=== PATIENT | male | born 1955 | race Caucasian/White ===

== ENCOUNTER → 2024-03-08 13:25 | Outpatient (REF) | payer MEDICARE, OTHER, SELFPAY | LOC: MRI 3T 13:25 | PROVIDERS: ATTENDING PHYSICIAN Physician Assistant Medical; FAMILY PHYSICIAN Family Medicine | DX: M25.511 Pain in right shoulder (principal) | CPT/HCPCS: 73221 ==

== ENCOUNTER 2024-03-29 17:02 | Emergency (ER) | payer MEDICARE, OTHER, SELFPAY ==
[2024-03-29 17:04] VITALS: BP 180/95
[2024-03-29 18:01] VITALS: BMI 34.5
[2024-03-29 18:06] VITALS: BP 174/96
--- NOTE | 2024-03-29 18:57 | ED.GENMED ---
History of Present Illness
General
Chief Complaint: Abdominal Pain
Time Seen by Provider: 03/29/24 17:37
Travel History
Have you had any contact with someone who has COVID-19?: No
Do you have any symptoms of coronavirus? Fever > 100 degrees, chills, cough, shortness of breath, sore throat, loss of taste or smell, muscle aches, or headache?: No
History of Present Illness
History of Present Illness:
69-year-old male with history of hypothyroidism and obstructive sleep apnea presents to the emergency department for evaluation of generalized abdominal comfort for the past week. No obvious provoking or palliating factors. Denies any associated
fevers but does have occasional night sweats. No vomiting, had 1 episode of nonbloody diarrhea today. Prior abdominal surgery includes inguinal hernia repair in 2022.
Past History
Past History
ED Past Medical History: Other (Sleep apnea)
ED Past Surgical History: None
Social History
Tobacco: Non-smoker
Personal:
Review of Systems
Review of Systems
Allergies reviewed?: Yes
All Other Systems: ROS reviewed and negative except as documented in HPI and ROS
Phy Exam
Physical Exam
Physical Exam:
GEN: Well appearing, NAD, WDWN
Eyes: PERRLA, EOMs intact, no scleral icterus
HENT: NCAT, oral mucosa moist
Lungs: CTAB, no wheezes, rales, rhonchi, normal chest wall excursion
Cardiac: RRR, no M/R/G, no peripheral edema. Radial pulses 2+ bilat
Abdomen: Soft, minimal generalized tenderness, no focality
Neuro: AO x 3
MSK: No gross deformity or ecchymosis. No edema. No digital clubbing
Skin: No rashes, petechiae. Normal color, no pallor or jaundice.
Psych: Calm, cooperative, proper hygiene
Course
Orders/Labs/Results
Orders:
Orders
03/29/24 18:43
CT Abd/Pel (IV only)-DH only Urgent
Comment:
Reason For Exam: generalized abd pain
03/29/24 19:06
Basic Metabolic Panel Urgent
Complete Blood Count/With Diff Urgent
Lipase Urgent
Urinalysis Reflex To Culture Urgent
Date Specimen was Collected: 03/29/24
Time Specimen was Collected: 18:49
Abnormal Lab Results
03/29/24
19:06
RBC 4.07 L 10^6/uL
(4.70-6.10)
Hgb 12.9 L g/dL
(13.0-18.0)
Hct 37.4 L %
(39.0-52.0)
MCH 31.7 H pg
(27.0-31.0)
Absolute Monos (auto) 0.7 H 10^3/uL
(0.1-0.6)
Monocytes % 11.3 H %
(1.7-9.3)
Chloride 108 H mmol/L
(98-107)
03/29/24 19:06
03/29/24 19:06
Vital Signs
Initial and Last Documented VS:
Initial Vital Signs
Temp Pulse Resp BP Pulse Ox
97.8 F 80 16 180/95 96
03/29/24 17:04 03/29/24 17:04 03/29/24 17:04 03/29/24 17:04 03/29/24 17:04
Last Documented Vital Signs
Temp Pulse Resp BP Pulse Ox
97.8 F 68 12 174/96 96
03/29/24 17:04 03/29/24 20:15 03/29/24 20:15 03/29/24 18:06 03/29/24 19:07
MDM/Problems Addressed
MDM/Problems Addressed:
Labs and CT are unremarkable. Unclear etiology to the patient's pain. Will give him a prescription for dicyclomine for supportive care, recommend outpatient primary care and GI follow-up
*Critical Care Note
Total Time (30-74mins, 75-104mins- exclusive of procedures): Not Applicable
ED Attending Note
-
Portions of this chart may have been created with voice recognition software.� Occasional wrong word or��sound alike� substitutions may have occurred due to the inherent limitations of voice recognition software.
Discharge Plan
Departure
Patient Disposition: Home (Routine Discharge)
Date of Disposition: 03/29/24
Time of Disposition: 21:35
Patient with high blood pressure during this ER visit?: No
Discharge Problem:
Acute generalized abdominal pain
Instructions: Abdominal Pain
Prescriptions:
New
dicyclomine 10 mg capsule
10 mg PO TID Qty: 20 0RF
No Action
Thyroid4/Thyroid3
1 tab PO DAILY
Patient Comments:
160/14mcg
oxycodone 5 mg tablet
5 mg PO Q4HPRN PRN (Reason: breakthrough/severe pain) Qty: 10 0RF
Referrals:
Joe George MD [Active] - Call in 1-3 days for appt
Lele Patel DO [Family Provider] -
Interventions
Interventions:
*Risk Screen - Suicide Last Done: 03/29/24 17:04
*General Assessment Last Done: 03/29/24 18:01
*Neglect/Abuse Screening Last Done: 03/29/24 17:04
ED- Fall Risk Assessment Last Done: 03/29/24 18:01
*ED COVID-19 Vaccine History Last Done: 03/29/24 17:40
*Nursing Disposition Last Done: 03/29/24 21:48
BC-Ulkepl-Fchdycjlum Assessment Last Done: 03/29/24 18:01
Discharge Date and Time
Discharge Date/Time: 03/29/24 21:49
Print Language: SWAZI
[2024-03-29 19:23] LABS: Urine Albumin Negative (Neg - Trace); Urine Bilirubin Negative (Negative); Urine Character Clear (Clear); Urine Color Yellow; Urine Glucose Negative (Negative); Urine Ketone Negative (Negative); Urine Leukocyte Negative (Negative); Urine Nitrite Negative (Negative); Urine Occult Blood Negative (Negative); Urine Urobilinogen Negative (Neg - 1+)
[2024-03-29 19:24] LABS: % Basophils 0.3 % (0-2); % Eosinophils 2.4 % (0-6); % Immature Granulocytes 0.3 % (0-0.5); % Lymphocytes 30.2 % (20.5-51.1); % Monocytes 11.3 % (1.7-9.3); % Neutrophils 55.5 % (42.2-75.2); Absolute Eosinophils 0.2 10^3/uL (0-0.7); Absolute Monocytes 0.7 10^3/uL (0.1-0.6); Absolute Neutrophils 3.6 10^3/uL (1.4-6.5); Hematocrit 37.4 % (39.0-52.0); Hemoglobin 12.9 g/dL (13.0-18.0); Mean Corp Hgb Conc. 34.5 g/dL (33.0-37.0); Mean Corpuscular Hgb 31.7 pg (27.0-31.0); Mean Corpuscular Volume 91.9 fL (80.0-94.0); Mean Platelet Volume 10.1 fL (7.4-10.4); Nucleated Red Blood Cells % 0 % (-); Platelet Count 174 10^3/uL (130-400); Red Blood Cell Count 4.07 10^6/uL (4.70-6.10); White Blood Cell Count 6.6 10^3/uL (4.8-10.8)
[2024-03-29 19:45] LABS: Calcium 9.3 mg/dl (8.4-10.2); Carbon Dioxide 24 mmol/L (22-30); Chloride 108 mmol/L (98-107); Estimated Creatinine Clearance > 125 ml/min; Glucose 87 mg/dl (70-99); eGFR > 60.00
[2024-03-29 19:46] LABS: Blood Urea Nitrogen 14 mg/dl (9-20); Lipase 57 U/L (23-300); Sodium 137 mmol/L (135-145)
== END 2024-03-29 21:49 | disposition home or self-care (01) ==
LOC: EMR 17:02
PROVIDERS: Physician Assistant; EMERGENCY PHYSICIAN Emergency Medicine; FAMILY PHYSICIAN Family Medicine
DX: R10.84 Generalized abdominal pain (principal); E03.9 Hypothyroidism, unspecified; G47.33 Obstructive sleep apnea (adult) (pediatric)
CPT/HCPCS: 99284; 74177; 80048; 81003; 83690; 85025; Q9967